=== PATIENT | female | born 1955 | race Caucasian/White ===

== ENCOUNTER 2020-11-28 01:36 | Emergency (ER) | payer SELFPAY ==
[2020-11-28 01:37] VITALS: BP 156/79; PULSE 74; RESP 16; TEMP 36.2; O2SAT 96; BMI 25.1
[2020-11-28 01:51] LABS: Bedside Glucose 101 mg/dL (70-110)
--- NOTE | 2020-11-28 02:12 | EKG12_ITS ---
Test Reason : DYSRHYTHMIA Blood Pressure : / mmHG Vent. Rate : 059 BPM Atrial Rate : 059 BPM P-R Int : 138 ms QRS Dur : 082 ms QT Int : 416 ms P-R-T Axes : 072 -08 053 degrees QTc Int : 411 ms Sinus bradycardia Possible Left atrial enlargement Borderline ECG Confirmed by THIERRY JIANG, AMIRA ([id number]), material expeditor IMAN RODRÍGUEZ ([id number]) on 12/02/2020 1:55:58 PM Referred By: REDD Confirmed By:AMIRA GUADARRAMA MD
--- NOTE | 2020-11-28 02:12 | CT_ITS ---
HISTORY: chest and abd pain TECHNIQUE: CT angiogram images of the chest, abdomen and pelvis were obtained with 100 mL Isovue-370 IV contrast. Enteric contrast was not administered. 3D MIP images reviewed to aid in vascular evaluation. A radiation dose optimization technique was used for this scan. Number of images including paperwork: [id number] COMPARISON: None FINDINGS: AORTA: Unremarkable. GREAT VESSELS: Unremarkable imaged extent. VISCERAL ARTERIES: Unremarkable. ILIAC ARTERIES: Unremarkable. VENOUS STRUCTURES: Limited evaluation due to phase of contrast but grossly unremarkable. CHEST: LUNGS AND PLEURA: No consolidation or pleural effusion. Linear and dependent opacities compatible with atelectasis. HEART AND PERICARDIUM: Normal heart size. MEDIASTINUM: Unremarkable. LYMPH NODES: No pathologic appearing adenopathy. ABDOMEN: LIVER AND BILIARY TRACT: 1.4 cm hyperenhancing lesion in the posterior right lobe of the liver, series 2 image 228, most likely to represent a hemangioma or other benign lesion in the absence of known malignancy or chronic liver disease. MRI without and with contrast could further evaluate if clinically warranted. No gallstones or biliary dilatation. SPLEEN: Unremarkable. PANCREAS: Unremarkable. ADRENAL GLANDS: Unremarkable. KIDNEYS/URETERS: Subcentimeter right renal cyst for which no follow-up is warranted for consensus guidelines. BOWEL: No dilated loops of bowel or areas of bowel wall thickening. Moderate amount of colonic stool. LYMPH NODES: No pathologic appearing adenopathy. FREE FLUID: No significant free fluid. FREE AIR: None. PELVIS: Unremarkable. OSSEOUS AND SOFT TISSUE STRUCTURES: No acute skeletal findings. Degenerative changes. CT/CTA Chst, Abd, Pel W and/or WO IMPRESSION: No acute vascular abnormality of the chest, abdomen and pelvis. Right lobe liver lesion, as above. Individualized dose optimization techniques were used for this CT. at 0348 Reported and signed by: Arianna Casanova MD Electronically Signed: Arianna Casanova MD at 3:48 EDT Tel , Service support ,
--- NOTE | 2020-11-28 02:12 | RAD_ITS ---
HISTORY: chest pain ADDITIONAL HISTORY: None provided. EXAMINATION/TECHNIQUE: XR Chest 1 View AP/PA Number of images including paperwork: 1 COMPARISON: 07/07/2017 FINDINGS: LUNGS AND PLEURA: No consolidation, mass or pleural effusion. CARDIAC SILHOUETTE: Stable. MEDIASTINUM AND BRIANNA: Stable. UPPER ABDOMEN: Unremarkable. SKELETON AND SOFT TISSUES: No acute skeletal findings. Degenerative changes. OTHER DEVICES AND HARDWARE: None. RAD/Chest 1 View (Portable) IMPRESSION: No acute cardiopulmonary abnormality. at 0349 Reported and signed by: Arianna Casanova MD Electronically Signed: Arianna Casanova MD at 3:49 EDT Tel , Service support ,
[2020-11-28 02:21] LABS: Absolute Lymphocyte Count 3.06 X10^3/uL (0.83-4.51); Absolute Neutrophil Count 2.7 X10^3/uL (2.0-7.7); Basophil# 0.02 X10^3/uL; Basophil% 0.3 % (0-1); Hematocrit 40.1 % (37-47); Hemoglobin 13.2 g/dL (12.0-15.0); Lymphocyte # 3.06 X10^3/ul (0.83-4.51); Lymphocyte % 45.6 % (19-41); Mean Corp Hgb Conc 32.9 g/dL (32-36); Mean Corpuscular Hgb 29.9 pg (27.0-32.0); Mean Corpuscular Volume 90.7 fL (81-99); Mean Platelet Vol. 10.2 fl (6.2-12.0); Monocyte# 0.72 X10^3/uL; Monocyte% 10.7 % (0-10); NRBC Flagged by Analyzer 0 % (0-5); Neutrophil % 40.3 % (47-70); Platelet Count 253 K/mm3 (150-450); RBC Distribution Width CV 12.8 % (11.6-14.6); RBC Distribution Width SD 42.7 fl (35.1-43.9); Red Blood Count 4.42 M/mm3 (4.2-5.4); White Blood Count 6.7 K/mm3 (4.4-11.0)
[2020-11-28] MEDS: 0.9% Normal Saline 1,000 ML 1000 ML IV (02:24)
[2020-11-28] MEDS: Ondansetron 4 MG/2 ML Vial IV (02:25)
[2020-11-28] MEDS: LORazepam 2 MG/ML Syringe 0.5 MG IV (02:27)
[2020-11-28 02:37] LABS: ALB/GLOB Ratio 1.1 RATIO (0.9-2.4); AST(SGOT) 23 U/L (15-37); Alanine Aminotransfer ALT/SGPT 22 U/L (13-56); Albumin, Serum 3.6 g/dL (3.2-5.0); Alkaline Phosphatase 55 U/L (45-117); Anion Gap 5 (5-15); BUN 24 mg/dL (7-18); BUN/Creat Ratio 22.6 RATIO (10-20); CPK Total, Creatine Kinase 84 U/L (26-192); Calcium,Total 8.9 mg/dL (8.5-10.1); Chloride 108 mmol/L (98-107); Creatinine, Serum 1.06 mg/dL (0.55-1.02); EST Glomerular Filtration Rate 56 mL/min (>60); Est Glom Filt Rate - Afr Amer 67 mL/min (>60); Estimated Creatinine Clearance 46.91 ml/min; Globulin 3.4 g/dL (2.2-4.2); Glucose 105 mg/dL (74-106); Lipase 211 U/L (73-393); Potassium 3.5 mmol/L (3.5-5.1); Sodium Level 139 mmol/L (136-145)
[2020-11-28 02:57] LABS: Bacteria 0 SEEN /hpf (None Seen); Mucous, Urine 0 SEEN /hpf (<or=2+); Red Blood Cells-Urine 0 SEEN /hpf (0-5); Squamous Epithelial Cells - UA 0 SEEN /hpf (5-10); White Blood Cells 0 SEEN /hpf (0-5)
[2020-11-28 02:57] LABS: Lactic Acid 0.7 mmol/L (0.4-1.9)
[2020-11-28 02:58] LABS: Color, Urine Yellow (Yellow); Glucose, Dipstick Normal (Normal); Ketone-Dipstick Negative (Negative); Leukocyte Esterase-Dipstick Negative /ul (Negative); Nitrite-Dipstick Negative (Negative); Occult Blood-Urine Negative /ul (Negative); Protein-Dipstick Negative (Negative); Urine Bilirubin Dipstick Negative (Negative); Urine Clarity Clear (Clear); Urine Urobilinogen Normal (Normal); Urine pH 6.5 (5.0 - 8.0)
[2020-11-28 04:49] VITALS: BP 115/73; PULSE 78; RESP 15; O2SAT 95
--- NOTE | 2020-11-28 04:50 | EX.ED.DYSGE1 ---
HPI History of Present Illness Chief Complaint: General Illness Informant: patient Narrative Narrative: Patient is a 65-year-old female presenting with generalized malaise. Patient states she has just been feeling weird. She states her arms and legs feel weak and her fingers and toes feel cold. She states she has a cramp in the left side of her neck. She has some mild associated chest tightness. She feels that her heartbeat is in her stomach. Is her symptom started around midnight tonight, little over an hour prior to arrival. She knows she has not has much energy this evening but denies anything else specific. She has no associated nausea or vomiting. She had normal bowel movements. She denies any black or blood in her stool. She states she is having some twitching and cramping of her legs. Patient states she is particularly concerned because her younger brother was diagnosed and treated for an aortic dissection and was told that family members could be more predisposed to this as well. Patient has any other complaints at this time. She denies any sick contacts. She denies any fever or chills. PFSH PFSH no medical history Home Medications NK 07/07/17 [History Last Taken Unknown] Allergy/AdvReac Type Severity Reaction Status Date / Time No Known Allergies Allergy Verified 11/28/20 01:40 Surgical History History of D&C Social History Smoking Status: Never smoker ROS ROS ED Constitutional Constitutional ED: Reports malaise; Denies chills or fever(s) Eyes Eyes: Denies blurry vision or loss of vision ENT ENT ED: Denies rhinorrhea or sore throat Cardiovascular Cardiovascular: Reports other; Denies chest pain or dizziness Respiratory/Chest Respiratory/Chest: Denies cough or dyspnea Gastrointestinal Gastrointestinal: Denies nausea or vomiting Genitourinary Genitourinary ED: Denies dysuria or hematuria Musculoskeletal Musculoskeletal: Denies arthralgias or myalgias Integumentary Denies rash or wounds Neurologic Neurologic: Denies focal weakness or headache(s) Psychiatric Psychiatric: Denies anxiety or behavioral changes EXAM Physical Exam Const Vital Signs: 11/28/20 01:37 11/28/20 01:40 11/28/20 04:49 Temperature 97.1 F L Temperature Source Temporal Pulse Rate 74 78 Respiratory Rate 16 15 Respiratory Effort Normal Respiratory Pattern Normal Blood Pressure 156/79 H 115/73 Blood Pressure Mean 104 87 Pulse Ox 96 95 Oxygen Delivery Method Room Air Room Air Positive well nourished, well developed and no apparent distress General Appearance ED: well developed HEENT Reports normocephalic atraumatic Nose: no nasal discharge General Ear: hearing grossly impaired External Ear: external ears normal Mouth ED: Yes moist mucous membranes abnormal Mouth: moist mucous membranes abnormal Eyes PERRL and EOMs intact bilaterally Neck full ROM, supple, no meningeal signs and no JVD Chest Wall inspection of chest normal Resp normal respiratory effort and normal air movement Cardio regular rate and regular rhythm GI normal to inspection, nondistended, normoactive bowel sounds Extremity normal to inspection and full ROM Extremity Narrative: 2+ pulses DP and radial General Extremety ED: Negative for edema General Extremity: Negative for edema Neuro oriented x3 and no focal motor deficits Psych mental status grossly normal and thought process normal Skin no rashes or lesions noted and no wounds MDM MDM MDM Narrative Medical decision making narrative: Patient valuated for general feeling of malaise as well as odd sensation in her fingers and toes. She had a film over the recently had a aortic dissection she is concerned that she could have 1 as well. She is having some chest discomfort associated with it. Patient is mildly hypertensive. Presentation is unique for aortic dissection but given her family history and back symptoms I did perform a CTA chest abdomen pelvis which does not show any acute process. Work-up including CBC and CMP is normal. Urinalysis is normal. Patient's troponin is negative x2. Lactate is 0.7. At this time I think she is stable for outpatient follow-up. Patient is low risk per heart score. The exact cause her presentation is not clear but I do not think she is having an acute cardiac event, signs of acute infection or any acute endorgan damage/surgical emergency. Patient is agreeable with this. She is discharged home in stable condition. Lab Data Labs: Laboratory Results - last 24 hr 11/28/20 11/28/20 11/28/20 01:40 01:40 01:46 WBC 6.7 RBC 4.42 Hgb 13.2 Hct 40.1 MCV 90.7 MCH 29.9 MCHC 32.9 RDW Std Deviation 42.7 RDW Coeff of Lex 12.8 Plt Count 253 MPV 10.2 Immature Gran % (Auto) 0.100 Neut % (Auto) 40.3 L Lymph % (Auto) 45.6 H Rowan % (Auto) 10.7 H Eos % (Auto) 3.0 Baso % (Auto) 0.3 Absolute Neuts (auto) 2.7 Absolute Lymphs (auto) 3.06 Nucleated RBC % 0 Sodium 139 Potassium 3.5 Chloride 108 H Carbon Dioxide 26.0 Anion Gap 5 BUN 24 H Creatinine 1.06 H Estim Creat Clear Calc 46.91 Est GFR (MDRD) Af Amer 67 Est GFR (MDRD) Non-Af 56 L BUN/Creatinine Ratio 22.6 H Glucose 105 Lactic Acid Calcium 8.9 Total Bilirubin 0.40 AST 23 ALT 22 Alkaline Phosphatase 55 Total Creatine Kinase 84 Troponin I < 0.015 Total Protein 7.0 Albumin 3.6 Globulin 3.4 Albumin/Globulin Ratio 1.1 Lipase 211 Urine Color Urine Clarity Urine pH Ur Specific [place] Urine Protein Urine Glucose (UA) Urine Ketones Urine Occult Blood Urine Nitrite Urine Bilirubin Urine Urobilinogen Ur Leukocyte Esterase Urine RBC Urine WBC Ur Squamous Epith Cells Urine Bacteria Urine Mucus POC Glucose 101 11/28/20 11/28/20 11/28/20 02:27 02:50 04:45 WBC RBC Hgb Hct MCV MCH MCHC RDW Std Deviation RDW Coeff of Lex Plt Count MPV Immature Gran % (Auto) Neut % (Auto) Lymph % (Auto) Rowan % (Auto) Eos % (Auto) Baso % (Auto) Absolute Neuts (auto) Absolute Lymphs (auto) Nucleated RBC % Sodium Potassium Chloride Carbon Dioxide Anion Gap BUN Creatinine Estim Creat Clear Calc Est GFR (MDRD) Af Amer Est GFR (MDRD) Non-Af BUN/Creatinine Ratio Glucose Lactic Acid 0.7 Calcium Total Bilirubin AST ALT Alkaline Phosphatase Total Creatine Kinase Troponin I < 0.015 Total Protein Albumin Globulin Albumin/Globulin Ratio Lipase Urine Color Yellow Urine Clarity Clear Urine pH 6.5 Ur Specific [place] 1.010 Urine Protein Negative Urine Glucose (UA) Normal Urine Ketones Negative Urine Occult Blood Negative Urine Nitrite Negative Urine Bilirubin Negative Urine Urobilinogen Normal Ur Leukocyte Esterase Negative Urine RBC 0 SEEN Urine WBC 0 SEEN Ur Squamous Epith Cells 0 SEEN Urine Bacteria 0 SEEN Urine Mucus 0 SEEN POC Glucose Radiography Chest X-Ray - ED: 1 View, Read by ED Physician, Read by Radiologist and Normal Diagnostic Testing: Radiology Impression Chest X-Ray 11/28/20 02:12 IMPRESSION: No acute cardiopulmonary abnormality. at 0349 Reported and signed by: Arianna Casanova MD Electronically Signed: Arianna Casanova MD at 3:49 EDT Tel , Service support , Chest/Abdomen/Pelvis CTA 11/28/20 02:12 IMPRESSION: No acute vascular abnormality of the chest, abdomen and pelvis. Right lobe liver lesion, as above. Individualized dose optimization techniques were used for this CT. at 0343 Reported and signed by: Arianna Casanova MD Electronically Signed: Arianna Casanova MD at 3:48 EDT Tel , Service support , Rhythm Strip Rhythm Strip: Sinus Rhythm Rate: 59 Ectopy: None EKG Initial EKG: Attestation: I personally reviewed and interpreted this EKG as follows: Interpretation: Sinus Rhythm Comments: Normal sinus rhythm at a rate of 59 Mild left axis Left atrial enlargement Normal intervals Normal ST segments Treatment and Re-Evaluation Comments:: IV fluids, Zofran and Ativan. Improvement of symptoms on multiple reevaluations. Discharge Plan Triage Chief Complaint: General Illness ED Provider: Lesly Fang Dx/Rx/DC Orders Clinical Impression: Chest discomfort, Malaise and fatigue Instructions: ED Chest Pain, Uncertain Cause, ED Weakness (Uncertain Cause) Prescriptions: No Action NK RF: 0 Primary Care Provider: Care Physician,No Primary Referrals: Jazmin Ernst MD [STAFF PHYSICIAN] - Care Physician,No Primary [Primary Care Provider] - Disposition Disposition: Home, self care
[2020-11-28 05:46] VITALS: BP 103/70; PULSE 64; RESP 14; O2SAT 96
== END 2020-11-28 05:57 | disposition home or self-care (01) ==
PROVIDERS: Emergency Provider Emergency Medicine
DX: R07.89 Other chest pain (principal); R53.81 Other malaise; R53.83 Other fatigue
CPT/HCPCS: 71045; 71275; 74174; 80053; 81001; 82550; 82962; 83605; 83690; 84484; 85025; 93005; 96374; 96375; 99284; J7030; Q9967; A4216; J2405